=== PATIENT | female | born 1985 | race African-American/Black ===

== ENCOUNTER 2018-03-29 02:06 | Inpatient (IN) | payer OTHER ==
[~2018-03-29] VITALS: Ht 154.9 cm; Wt 67.6 kg
[2018-03-29 02:56] LABS: BASOPHIL % 0.1 % (0-2); PLATELET COUNT 389 x10^3mcL (130-400)
[2018-03-29 02:57] LABS: RED CELL DISTRIBUTION WIDTH 15.6 % (11.5-14.5)
[2018-03-29 03:35] LABS: CARBON DIOXIDE 21.2 mmol/L (21-32); CREATININE SERUM 1.2 mg/dL (0.6-1.0); POTASSIUM SERUM 3.7 mmol/L (3.5-5.1)
[2018-03-29 03:36] LABS: ALBUMIN 3.7 g/dL (3.4-5.0); BILIRUBIN TOTAL 0.35 mg/dL (0.20-1.00); TOTAL PROTEIN, SERUM 8.4 g/dL (6.4-8.2)
[2018-03-29 07:27] LABS: T3 TOTAL 2.1 ng/mL
[2018-03-29 07:34] LABS: PHOSPHOROUS 4.1 mg/dL (2.5-4.9)
[2018-03-29 07:41] LABS: CHOLESTEROL/HDL RATIO 2.7
[2018-03-29 08:03] LABS: FREE T4 1.21 ng/dL (0.76-1.46); FREE THYROXINE INDEX 3.5 ug/dL (1.4-4.5); T4(THYROXINE) 10.5 ug/dL (4.7-13.3)
[2018-03-29 09:07] VITALS: BP 113/52
[2018-03-29 09:20] VITALS: BP 125/73
[2018-03-29 09:37] VITALS: Ht 154.9 cm; Wt 67.6 kg
[2018-03-29] MEDS ORDERED: CELEXA20 MG PO (12:09)
[2018-03-29] MEDS ORDERED: ATIVAN0.5 M1 PO (12:10)
[2018-03-29] MEDS ORDERED: PRAZOSIN HYDROCH1 MG PO (12:12)
[2018-03-29 12:42] VITALS: BP 125/73
[2018-03-29 16:03] VITALS: BP 127/95
[2018-03-29 20:00] VITALS: BP 115/44
[2018-03-29 23:59] VITALS: BP 107/79
[2018-03-30 00:40] VITALS: BP 107/79
== END 2018-03-30 01:19 | disposition short-term general hospital (02) | DRG 53 ==
LOC: ED 02:06 → IC 05:55
PROVIDERS: Emergency Medicine; Internal Medicine
DX: G40.901 Epilepsy, unspecified, not intractable, with status epilepticus (principal); N17.0 Acute kidney failure with tubular necrosis; E78.5 Hyperlipidemia, unspecified; J45.909 Unspecified asthma, uncomplicated; I10 Essential (primary) hypertension; Z88.8 Allergy status to other drugs, medicaments and biological substances
CPT/HCPCS: 83880; 84439; 90658; 94150; J1885; J1953; J2001; J2060; J2250; J2270; J2405; J3490; J7030; J7620; J8597; Q0162